=== PATIENT | female | born 1985 | race Caucasian/White ===

== ENCOUNTER 2020-02-28 09:31 | Day surgery (SDC) | payer BC ==
[~2020-02-28] VITALS: Ht 167.6 cm; Wt 55.4 kg
[2020-02-28] MEDS ORDERED: PRILOSEC 20MG20 MG PO (09:47)
[2020-02-28] MEDS ORDERED: PROBIOTIC ACID1 EAC3 PO (09:48)
[2020-02-28] MEDS ORDERED: MULTIPLE VITAMI1 CAP PO (09:48)
[2020-02-28 10:18] VITALS: BP 109/84; PULSE 96; TEMP 97.7
[2020-02-28 11:15] VITALS: BP 119/80; PULSE 98; TEMP 97.6
--- NOTE | 2020-02-28 11:15 | NUR ---
Patient arrives back to [facility] [place] alert, denies pain or nausea. Patient ambulated from cart to chair with stand by assist and without any complications. Patient monitor applied, vitals stable. Patient given juice, denies wanting anything to eat at this time.
--- NOTE | 2020-02-28 11:20 | NUR ---
Dr Rosenthal into see patient to go over procedure results at this time.
[2020-02-28 11:30] VITALS: BP 105/83; PULSE 87
[2020-02-28 11:45] VITALS: BP 107/71; PULSE 77
--- NOTE | 2020-02-28 11:50 | NUR ---
Patient reports that she feels good and is ready to go home. Vitals stable.
[2020-02-28 12:00] VITALS: BP 106/61; PULSE 69
--- NOTE | 2020-02-28 12:15 | NUR ---
Dismissal instructions gone over with patient, she voices understanding and all questions answered.
--- NOTE | 2020-02-28 12:20 | NUR ---
Patient discharged to private vehicle at patient enterance via wheelchair. Patient's spouse is driving. Patient leaves thanking staff for services.
== END 2020-02-28 12:20 | disposition home or self-care (01) ==
LOC: SDCO 09:31
DX: K21.9 Gastro-esophageal reflux disease without esophagitis (principal); K44.9 Diaphragmatic hernia without obstruction or gangrene; K63.9 Disease of intestine, unspecified; K58.9 Irritable bowel syndrome, unspecified; Z79.899 Other long term (current) drug therapy
CPT/HCPCS: J2704; J3010